=== PATIENT | male | born 1975 | race Caucasian/White ===

== ENCOUNTER 2018-05-17 08:04 | Observation (INO) ==
[2018-05-17] MEDS ORDERED: *HR* Adenosine 6 MG/2 ML VIAL IVP ONE (08:09)
[2018-05-17] MEDS ORDERED: Aspirin 81 MG TAB.CHEW PO ONE (08:10)
[2018-05-17] MEDS ORDERED: 0.9 % Sodium Chloride 1,000 ML IVC SCH ×2 (08:15→10:01)
--- NOTE | 2018-05-17 08:26 | Emergency Department Note ---
Disposition Clinical Impression: History of hyperlipidemia, Chest pain, History of hypertension, Shortness of breath, HLD (hyperlipidemia), Morbid obesity with BMI of 40.0-44.9, adult, Diabetes mellitus Disposition: Admitted As Inpatient Condition: Fair Referrals: Fco Mcconnell MD [Primary Care Provider] - Forms: ED Satisfaction Letter Time of Disposition: 09:23 (daryl solano [facility]) Chest Pain HPI - General Chief Complaint: ED Chest Pain Stated Complaint: CHEST PAIN Time Seen by Provider: 05/17/18 08:05 Source: patient Mode of arrival: ambulatory Limitations: no limitations Vital Signs Reviewed: Yes Nursing Notes Reviewed: Yes - History of Present Illness HPI Narrative: 43-year-old male depressed 7:00 this morning developed chest pressure now presents here to the emergency room patient states he was moving some boxes when it occurred he denies any blurred vision double vision loss vision and lightheadedness or any syncope patient states he feels like his heart is racing patient had a heart attack in the past states a pressure similar to that he denies fever chills cough cold of flulike symptoms numbness and weakness recent weight gain or weight loss patient states he has been taking fluids he is diabetic with a history of hypertensive heart disease Pt complaint: chest pain Onset (ago): hour(s) (1) Time: 07:00 Duration: constant Onset: during rest, during exertion Pain Location: substernal Severity: severe Severity scale (1-10): 10 Quality: tightness, similar to prior [place] Pain Radiation: none Improves with: nothing Worsens with: nothing Associated symptoms: Reports: palpitations. Denies: nausea, vomiting, diaphoresis, dyspnea, sense of impending doom, syncope, fever, cough, leg swelling Treatments prior to arrival chest pain: other (To call his normal medications which does include aspirin and metoprolol lisinopril) - Related Data Home Medications Medication Instructions Recorded Confirmed Canagliflozin [Invokana] 100 mg PO DAILY 04/14/16 05/17/18 Citalopram Hydrobromide [Celexa] 40 mg PO DAILY 04/14/16 05/17/18 Glimepiride [Amaryl] 4 mg PO DAILY 04/14/16 05/17/18 HYDROcodone/Acet 10/325 mg [[place] 1 tab PO TID PRN 04/14/16 05/17/18 10-325 mg] Lisinopril [Zestril] 40 mg PO DAILY 04/14/16 05/17/18 Pravastatin Sodium [Pravachol] 80 mg PO DAILY 04/14/16 05/17/18 Amlodipine Besylate 10 mg PO DAILY 05/12/17 05/17/18 Exenatide Microspheres [Bydureon 2 mg SQ QWEEK 05/12/17 05/17/18 Pen] Metformin HCl [Metformin HCl ER] 1,000 mg PO BID 05/12/17 05/17/18 Quetiapine Fumarate [Seroquel] 25 mg PO HS 05/12/17 05/17/18 Metoprolol Succinate [Toprol Xl] 100 mg PO BID 04/25/18 05/17/18 Triamterene/HCTZ 37.5/25mg 1 tab PO DAILY 04/25/18 05/17/18 [Dyazide] hydrALAZINE [HydrALAZINE] 25 mg PO TID 04/25/18 05/17/18 Previous Rx's Medication Instructions Recorded Aspirin 81 mg PO DAILY #30 tab.chew 05/14/17 Isosorbide MONOnitrate (24 HR) 60 mg PO DAILY #30 tab.er.24h 05/14/17 [Imdur] Albuterol Sulfate [Albuterol 2 puff IH QID #1 inhaler 10/12/17 Inhaler] Allergies Allergy/AdvReac Type Severity Reaction Status Date / Time No Known Allergies Allergy Verified 04/25/18 14:57 All systems ED: reviewed and negative except as stated. Review of Systems: As Per HPI Constitutional: Reports: weakness. Denies: fever, chills Eyes: Denies: eye pain, eye discharge ENT ED: Denies: ear pain, throat pain Cardiovascular: Reports: chest pain, palpitations. Denies: dyspnea on exertion , orthopnea, syncope, paroxysmal nocturnal dyspnea Respiratory: Denies: cough, dyspnea, wheezes Gastrointestinal: Denies: abdominal pain, nausea, vomiting Genitourinary: Denies: urgency, dysuria, frequency Musculoskeletal: Denies: back pain, neck pain Integumentary: Denies: rash, abrasion Neurological: Denies: abnormal gait Psychiatric: Denies: anxiety Endocrine: Denies: fatigue Hematological/Lymphatic: Denies: easy bleeding Allergic/Immunologic: Denies: facial swelling Chest Pain PMH - Past Medical History Medical history: Reports: asthma, diabetes, hyperlipidemia, hypertension Psychiatric history: Reports: no psych history - Social History Smoking Status: Never smoker Alcohol use: Reports: none Drug use: Reports: none Physical Exam - General Limitations: no limitations General appearance: alert, in no apparent distress, anxious, obese - Head Head exam: atraumatic, normocephalic, normal inspection - Eye Eye exam: Present: normal appearance, PERRL, EOMI - ENT ENT exam: normal exam, normal oropharynx, mucous membranes moist - Neck Neck exam: Present: normal inspection, full ROM, trachea midline - Chest Chest inspection: Present: normal inspection, symmetric chest wall rise - Respiratory Respiratory exam: Present: normal lung sounds bilaterally - Cardiovascular Cardiovascular exam: Present: tachycardia, other (But then became irregular rate and rhythm) - Abdominal Exam Abdominal exam: Present: soft, Non-Tender, normal bowel sounds, hyperactive bowel sounds. Absent: mass, pulsatile mass - Extremities Exam Extremities exam: Present: normal inspection, full ROM, normal capillary refill. Absent: tenderness, pedal edema, joint swelling, calf tenderness - Expanded Lower Extremity Exam Neurovascular/Tendon exam: Present: normal capillary refill, normal fine/light touch Gait: observed and normal - Back Exam Back exam: Present: normal inspection, full ROM. 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 Patient resting comfortably at this time - Reevaluation(s) Reevaluation #1: Patient is slight increase in his heart rate was given an additional dose of Cardizem placed on a Cardizem drip transferred to [facility] [address] Hernández except Vital Signs Temperature 97.6 F 05/17/18 08:05 Pulse Rate 138 05/17/18 08:05 Respiratory Rate 18 05/17/18 08:05 Blood Pressure 130/68 05/17/18 08:05 O2 Sat by Pulse Oximetry 96 05/17/18 08:05 Temperature 97.6 F 05/17/18 08:05 Pulse Rate 119 05/17/18 09:15 Respiratory Rate 18 05/17/18 09:15 Blood Pressure 140/78 05/17/18 09:15 O2 Sat by Pulse Oximetry 96 05/17/18 09:15 Oxygen Delivery Oxygen Delivery Room Air Chest Pain - Differential Diagnosis Likely: unstable angina pectoris, st elevation myocardial infraction, chest pain - Medical Records Medical records reviewed: Yes I reviewed the patient's medical records. - Lab Data Lab results reviewed: Yes I reviewed the patient's lab results. Result diagrams: 05/17/18 08:28 05/17/18 08:28 Lab Results 05/17/18 05/17/18 05/17/18 Range/Units 08:28 08:28 08:28 WBC 12.0 H (4.3-11.1) K/mcL RBC 5.50 (4.19-5.50) M/mcL Hgb 16.4 (12.9-16.9) g/dL Hct 47.7 (37.5-50.1) % MCV 86.7 (83.0-100.0) fL MCH 29.8 (28.0-33.3) pg MCHC 34.4 (31.6-35.5) g/dL RDW 13.2 (11.5-14.5) % Plt Count 297 (140-400) K/mcL MPV 10.7 (9.4-12.4) fL Immature Gran % 0.2 (0-4) % Seg Neutrophils % 62.9 % Lymphocytes % 25.3 % Monocytes % 8.0 % Eosinophils % 2.4 % Basophils % 1.2 % Neutrophils # 7.6 (1.6-8.9) K/mcL Lymphocytes # 3.0 (0.6-4.6) K/mcL Monocytes # 1.0 (0.0-1.3) K/mcL Eosinophils # 0.3 (0.0-0.6) K/mcL Basophils # 0.1 (0.0-0.2) K/mcL PT 11.4 (9.4-12.1) Seconds INR 1.1 APTT 32.9 (26.0-36.0) Seconds Sodium (136-145) mEq/L Potassium (3.5-5.1) mEq/L Chloride (98-107) mEq/L Carbon Dioxide (23-29) mEq/L BUN (6-20) mg/dL Creatinine (0.70-1.30) mg/dL Est GFR ( Amer) (> 60) Est GFR (Non-Af Amer) (> 60) BUN/Creatinine Ratio (6-26) Glucose (70-105) mg/dL Calculated Osmolality (280-300) Calcium (8.6-10.3) mg/dL Magnesium (1.6-2.6) mg/dL Total Bilirubin (0.3-1.0) mg/dL AST (13-39) Units/L ALT (7-52) Units/L Alkaline Phosphatase (34-104) Units/L Troponin I (< 0.04) ng/mL Serum Total Protein (6.4-8.9) g/dL Albumin (3.5-5.7) g/dL Globulin (2.4-3.5) g/dL Albumin/Globulin Ratio (1.1-2.2) TSH (0.340-5.600) mcIU/mL 05/17/18 Range/Units 08:28 WBC (4.3-11.1) K/mcL RBC (4.19-5.50) M/mcL Hgb (12.9-16.9) g/dL Hct (37.5-50.1) % MCV (83.0-100.0) fL MCH (28.0-33.3) pg MCHC (31.6-35.5) g/dL RDW (11.5-14.5) % Plt Count (140-400) K/mcL MPV (9.4-12.4) fL Immature Gran % (0-4) % Seg Neutrophils % % Lymphocytes % % Monocytes % % Eosinophils % % Basophils % % Neutrophils # (1.6-8.9) K/mcL Lymphocytes # (0.6-4.6) K/mcL Monocytes # (0.0-1.3) K/mcL Eosinophils # (0.0-0.6) K/mcL Basophils # (0.0-0.2) K/mcL PT (9.4-12.1) Seconds INR APTT (26.0-36.0) Seconds Sodium 138 (136-145) mEq/L Potassium 3.2 L (3.5-5.1) mEq/L Chloride 100 (98-107) mEq/L Carbon Dioxide 27 (23-29) mEq/L BUN 22 H (6-20) mg/dL Creatinine 0.74 (0.70-1.30) mg/dL Est GFR ( Amer) > 60 (> 60) Est GFR (Non-Af Amer) > 60 (> 60) BUN/Creatinine Ratio 30 H (6-26) Glucose 162 H (70-105) mg/dL Calculated Osmolality 293 (280-300) Calcium 9.2 (8.6-10.3) mg/dL Magnesium 1.4 L (1.6-2.6) mg/dL Total Bilirubin 0.6 (0.3-1.0) mg/dL AST 14 (13-39) Units/L ALT 20 (7-52) Units/L Alkaline Phosphatase 95 (34-104) Units/L Troponin I < 0.03 (< 0.04) ng/mL Serum Total Protein 7.0 (6.4-8.9) g/dL Albumin 4.2 (3.5-5.7) g/dL Globulin 2.8 (2.4-3.5) g/dL Albumin/Globulin Ratio 1.5 (1.1-2.2) TSH 0.810 (0.340-5.600) mcIU/mL - Radiology Data Radiology results reviewed: Yes I reviewed the patient's radiology results. - EKG Data EKG attestation: Yes I reviewed and interpreted this EKG. EKG results narrative: EKG #1 sinus tach with short WI interval left ventricular hypertrophy and some possible ST changes rate 150 when necessary 120. 98 QT 300 access -3 EKG #2 atrial fib with rapid ventricular response with occasional PVC unifocal and etiology nonspecific T-wave changes rate 120 WI and QRS 111 QT 313 axis EKG #32 with PVCs of unifocal etiology rate 99 WI 188 QRS 96 QT 332 access one Heart Score - Score History: Slightly Suspicious EKG: Non Specific repolarisation Disturbance Age: Less than 45 Risk Factors: Equal/Greater than 3 risk factor or history of atherosclerotic disease Troponin: Less than normal limit HEART Score Total: 3 Critical Care Time Critical Care Time: Yes Total Critical Care Time: 35 Attestation: Critical care performed:35 iPhones really clinically significant life- threatening deterioration is patient as result of the new onset atrial fibrillation or cardiac arrhythmia stabilized patient and arranging admission Time is exclusive of separately billable procedures. Time includes: direct patient care, patient reassessment, coordination of patient care, interpretation of data (laboratory data, radiology data, and respiratory data), review of patient's medical records, medical consultation and documentation of patient care. Procedures included in critical care time: Procedures excluded from critical care time:
[2018-05-17 08:36] LABS: Basophils # 0.1 K/mcL (0.0-0.2); Basophils % 1.2 %; Eosinophils # 0.3 K/mcL (0.0-0.6); Eosinophils % 2.4 %; Hematocrit 47.7 % (37.5-50.1); Hemoglobin 16.4 g/dL (12.9-16.9); Immature Granulocytes % 0.2 % (0-4); Lymphocytes % 25.3 %; Mean Corpuscular HGB Conc 34.4 g/dL (31.6-35.5); Mean Corpuscular Hemoglobin 29.8 pg (28.0-33.3); Mean Corpuscular Volume 86.7 fL (83.0-100.0); Mean Platelet Volume 10.7 fL (9.4-12.4); Platelet Count 297 K/mcL (140-400); Red Cell Distribution Width 13.2 % (11.5-14.5); Segmented Neutrophils % 62.9 %
[2018-05-17 08:41] LABS: Neutrophils # 7.6 K/mcL (1.6-8.9)
[2018-05-17 08:44] LABS: INR 1.1; Prothrombin Time 11.4 Seconds (9.4-12.1)
[2018-05-17 09:03] LABS: Alanine Aminotransferase 20 Units/L (7-52); Albumin 4.2 g/dL (3.5-5.7); Albumin/Globulin Ratio 1.5 (1.1-2.2); Alkaline Phosphatase 95 Units/L (34-104); Aspartate Amino Transferase 14 Units/L (13-39); BUN/Creatinine Ratio 30 (6-26); Bilirubin,Total 0.6 mg/dL (0.3-1.0); Blood Urea Nitrogen 22 mg/dL (6-20); Calcium 9.2 mg/dL (8.6-10.3); Carbon Dioxide 27 mEq/L (23-29); Chloride 100 mEq/L (98-107); Globulin 2.8 g/dL (2.4-3.5); Glucose 162 mg/dL (70-105); Magnesium 1.4 mg/dL (1.6-2.6); Osmolality,Calculated 293 (280-300); Potassium 3.2 mEq/L (3.5-5.1); Sodium 138 mEq/L (136-145); Troponin I < 0.03 ng/mL (< 0.04); eGFR For African Americans > 60 (> 60); eGFR For Non-African Americans > 60 (> 60)
[2018-05-17] MEDS ORDERED: Potassium Effervescent 25 MEQ TABLET.EFF PO ONE (09:11)
[2018-05-17] MEDS ORDERED: Naloxone 0.4 MG/ML INJ IVP PRN (10:01)
[2018-05-17] MEDS ORDERED: *HR* Dextrose 50 % in Water (Syg) 50 ML SYRINGE IVP PRN (10:01)
[2018-05-17] MEDS ORDERED: *HR* HYDROcodone/Acet 10/325 mg TABLET PO PRN (10:01)
[2018-05-17] MEDS ORDERED: D5% in Water 1,000 ML IVC PRN (10:01)
[2018-05-17] MEDS ORDERED: Dextrose Gel 15 GM/37.5 ML TUBE PO PRN ×2 (10:01)
[2018-05-17] MEDS: Insulin LISPRO 300 UNITS/3 ML VIAL SQ SCH ×2 (11:41→16:33)
--- NOTE | 2018-05-17 12:24 | Internal Med History&Physical ---
Date of Encounter: 05/17/18 Time of Encounter: 11:45 Assessment and Plan (1) Atrial fibrillation Current visit: Yes Status: Acute Duration unknown. Now converted back to normal sinus rhythm. Will discontinue Cardizem drip and place on oral verapamil. Continue maximum dose metoprolol XL. Will order echocardiogram. Qualifiers: Atrial fibrillation type: unspecified Qualified Code(s): I48.91 - Unspecified atrial fibrillation (2) Chest pain Current visit: Yes Status: Acute Will repeat cardiac enzymes. Regadenoson test during recent [facility] stay unremarkable for ischemia. Will order echocardiogram Qualifiers: Chest pain type: precordial pain Qualified Code(s): R07.2 - Precordial pain (3) Diabetes mellitus Current visit: Yes Status: Chronic Continue Invokana, Bydureon, Amaryl, and metformin. Qualifiers: Diabetes mellitus type: type 2 Diabetes mellitus ferry terminal agent insulin use: without ferry terminal agent use Diabetes mellitus complication status: without complication Qualified Code(s): E11.9 - Type 2 diabetes mellitus without complications (4) HLD (hyperlipidemia) Current visit: No Status: Acute Profile 04/25/2018 showed total cholesterol 139, triglycerides 132, LDL 80, HDL 33, and total/HDL ratio 4.2. Continue statin. Qualifiers: Hyperlipidemia type: unspecified Qualified Code(s): E78.5 - Hyperlipidemia , unspecified (5) Leukocytosis Current visit: No Status: Acute Mild leukocytosis present on most labs since January 2015. Possibly normal variant. Qualifiers: Leukocytosis type: unspecified Qualified Code(s): D72.829 - Elevated white blood cell count, unspecified (6) HTN (hypertension) Current visit: No Status: Chronic Continue Dyazide, Toprol, lisinopril, and hydralazine. Will discontinue Norvasc and use verapamil to assist in AF with RVR control. Qualifiers: Hypertension type: essential hypertension Qualified Code(s): I10 - Essential (primary) hypertension (7) Hypokalemia Current visit: Yes Status: Acute Supplemental potassium has been started. Will monitor labs. (8) Hypomagnesemia Current visit: Yes Status: Acute Supplemental magnesium has been ordered. Internal Medicine - H&P: HPI Chief complaint: Chest pain Admitted From: Emergency Dept Plans for Post Hospital Care: Home History of present illness: Mr. Hale is a 43 year old male who came to the hospital stating he had onset of discomfort in his chest approximately 0700 while doing usual activities at work. He describes a sensation as a tightness in his chest that radiated to his left arm. There was dyspnea and diaphoresis. He had a sensation of rapid heart rate. He states the discomfort was at a level of 10/10. He took an aspirin without relief so came to emergency room. He was evaluated and found to have atrial fibrillation with RVR. He was started on Cardizem drip and admitted to [facility] floor for ongoing care needs. He denies previous diagnosis of atrial fibrillation. He had an episode of similar but less severe chest tightness approximately 3 weeks ago and was hospitalized at [facility]. TX was ruled out and Regadenoson stress test showed no evidence of ischemia. He thinks he was told he might have had an TX several years ago but does not remember details. He denies past heart catheter being done however H&P at [facility] on 04/25/2018 states he reported a LHC in the past with 35% stenosis in a vessel. Echocardiogram on 05/12/2017 showed LVEF of 65%. No significant valvular dysfunction was seen. There was significant increased thickness interventricular septum and posterior wall at 1.60 and 1.40 cm respectively. He denies DVT or pulmonary embolus. He denies angina or anginal equivalents or similar chest discomfort doing usual work duties. He states he is pain-free at present time. Past Med Surg Social Fam HX - Past Medical History Medical history: asthma, diabetes, hyperlipidemia, hypertension Additional medical history: see attached records, pt also reports chronic back pain with past surgeries and injections, neuropathy Psychiatric history: no psych history - Past Surgical History Additional surgical history: BACK/WRIST - Social History Smoking Status: Never smoker Smokeless Tobacco Status: No Alcohol use: none Drug use: none - Family History Father Adopted: [place]: Vlad Nelsonmirtha Marcos. Age: 64 Family Member Ethnicity: Non- Living Status: Still Living Hx Family Cardiac Disorders: Yes (HTN HLD) Hx Family Endocrine Disorder: Yes (DM) Hx Family Neurologic Disorders: Yes (stroke) Mother Adopted: [place]: Beverly Hale Age: 62 Family Member Ethnicity: Non- Living Status: Still Living Hx Family Cardiac Disorders: Yes (HTN) Hx Family Endocrine Disorder: Yes (DM) Internal Medicine - H&P: Meds Canagliflozin [Invokana] 100 mg PO DAILY 04/14/16 [History] Citalopram Hydrobromide [Celexa] 40 mg PO DAILY 04/14/16 [History] Glimepiride [Amaryl] 4 mg PO DAILY 04/14/16 [History] HYDROcodone/Acet 10/325 mg [[place] 10-325 mg] 1 tab PO TID PRN 04/14/16 [History] Lisinopril [Zestril] 40 mg PO DAILY 04/14/16 [History] Pravastatin Sodium [Pravachol] 80 mg PO DAILY 04/14/16 [History] Amlodipine Besylate 10 mg PO DAILY 05/12/17 [History] Exenatide Microspheres [Bydureon Pen] 2 mg SQ QWEEK 05/12/17 [History] Metformin HCl [Metformin HCl ER] 1,000 mg PO BID 05/12/17 [History] Quetiapine Fumarate [Seroquel] 25 mg PO HS 05/12/17 [History] Aspirin 81 mg PO DAILY #30 tab.chew 05/14/17 [Rx] Isosorbide MONOnitrate (24 HR) [Imdur] 60 mg PO DAILY #30 tab.er.24h 05/14/17 [ Rx] Albuterol Sulfate [Albuterol Inhaler] 2 puff IH QID #1 inhaler 10/12/17 [Rx] Metoprolol Succinate [Toprol Xl] 100 mg PO BID 04/25/18 [History] Triamterene/HCTZ 37.5/25mg [Dyazide] 1 tab PO DAILY 04/25/18 [History] hydrALAZINE [HydrALAZINE] 25 mg PO TID 04/25/18 [History] 3 Allergy/AdvReac Type Severity Reaction Status Date / Time No Known Allergies Allergy Verified 04/25/18 14:57 All Systems PM: A 10-system review of systems was performed and is negative for pertinent findings except as documented above in the HPI. Review of systems: Gen.: He states his weight has been stable the past few months Cardiovascular: As per history of present illness Respiratory: He is a lifelong nonsmoker but reports a diagnosis of asthma. PFTs were done 05/23/2017 which showed FVC 63% predicted, FEV1/FVC 82%, MVV 43% predicted, and DLCO 138%. GI: He denies disorders of his liver gallbladder or exocrine pancreas : Denies hematuria dysuria or kidney stones Neurologic: He denies large distribution strokes or seizures. Endocrine: He was diagnosed with DM 2 approximately 2009. Hemoglobin A1c was 7.5% on 04/25/2018. He has hyperlipidemia. He denies thyroid disease Hematology/oncology: He denies blood disorders cancers or anemia Psychiatric: He denies anxiety depression or other mental health issues [place] skeletal: He reports 2 previous back surgeries and wrist surgery. He denies other bone joint or muscle disorders. - Constitutional Vitals: Temp Pulse Resp BP Pulse Ox 98.1 F 112 18 109/66 95 05/17/18 10:01 05/17/18 10:01 05/17/18 10:15 05/17/18 10:15 05/17/18 10:01 Exam: Gen.: He is well-developed obese male lying in bed who appears in no acute distress HEENT: Head is atraumatic and normocephalic. Eyes: EOMI. There is no scleral icterus. Mouth: Mucosa is moist. Neck: Supple and nontender. There is no thyromegaly or adenopathy noted. Heart: Regular without murmurs gallops or ectopics Lungs: No wheezes or crackles are heard. Abdomen: Soft and nontender. No masses or guarding are noted. Extremities: He has chronic venous stasis pigmentation changes of his lower legs. Dorsalis pedis and posttibial pulses are 1-2 over 2 bilaterally. There is no cyanosis edema or clubbing noted. Neurologic: Mental status: He is talkative and a good historian. Cranial nerves : Smile is symmetric. Forehead wrinkles bilaterally. Tongue protrudes midline. EOMI. Motor: There is no pronator drift. Cerebellar: Finger to nose is intact bilaterally. Skin: Warm and dry Internal Med - H&P Results - Labs CBC & Chem 7: 05/17/18 08:28 05/17/18 08:28
[2018-05-17] MEDS: Magnesium Oxide 400 MG TABLET PO SCH ×2 (14:27→20:22)
[2018-05-17] MEDS: Verapamil ER (24 HR) 120 MG TABLET.ER PO SCH (14:27)
[2018-05-17] MEDS: hydrALAZINE 25 MG TABLET PO SCH ×2 (14:28→20:22)
[2018-05-17] MEDS: *HR* Metformin 500 MG TABLET PO SCH (16:36)
[2018-05-17] MEDS: Metoprolol XL (24 HR) Succ 50 MG TAB.ER.24H PO SCH (20:21)
[2018-05-18 02:25] LABS: Basophils # 0.1 K/mcL (0.0-0.2); Basophils % 0.8 %; Eosinophils # 0.4 K/mcL (0.0-0.6); Eosinophils % 3.1 %; Hematocrit 44.9 % (37.5-50.1); Hemoglobin 15.1 g/dL (12.9-16.9); Immature Granulocytes % 0.3 % (0-4); Lymphocytes # 3.7 K/mcL (0.6-4.6); Mean Corpuscular HGB Conc 33.6 g/dL (31.6-35.5); Mean Corpuscular Hemoglobin 29.7 pg (28.0-33.3); Mean Corpuscular Volume 88.2 fL (83.0-100.0); Mean Platelet Volume 10.4 fL (9.4-12.4); Monocytes # 0.8 K/mcL (0.0-1.3); Monocytes % 6.8 %; Platelet Count 277 K/mcL (140-400); Red Blood Count 5.09 M/mcL (4.19-5.50); Red Cell Distribution Width 13.3 % (11.5-14.5)
[2018-05-18 02:32] LABS: Neutrophils # 6.8 K/mcL (1.6-8.9)
[2018-05-18 02:44] LABS: BUN/Creatinine Ratio 30 (6-26); Blood Urea Nitrogen 17 mg/dL (6-20); Carbon Dioxide 30 mEq/L (23-29); Chloride 102 mEq/L (98-107); Glucose 103 mg/dL (70-105); Osmolality,Calculated 292 (280-300); Potassium 3.5 mEq/L (3.5-5.1); Sodium 140 mEq/L (136-145); eGFR For African Americans > 60 (> 60); eGFR For Non-African Americans > 60 (> 60)
[2018-05-18 06:58] VITALS: BP 157/88
[2018-05-18] MEDS: Metoprolol XL (24 HR) Succ 50 MG TAB.ER.24H PO SCH (07:54)
[2018-05-18] MEDS: Verapamil ER (24 HR) 120 MG TABLET.ER PO SCH (07:54)
[2018-05-18] MEDS: Magnesium Oxide 400 MG TABLET PO SCH (07:54)
[2018-05-18] MEDS: hydrALAZINE 25 MG TABLET PO SCH ×2 (07:55→14:24)
[2018-05-18] MEDS: *HR* Metformin 500 MG TABLET PO SCH ×2 (07:55→16:28)
[2018-05-18] MEDS ORDERED: *HR* Glimepiride 2 MG TABLET PO SCH (08:00)
[2018-05-18] MEDS: Insulin LISPRO 300 UNITS/3 ML VIAL SQ SCH ×2 (08:01→14:27)
[2018-05-18] MEDS ORDERED: INVOKANA 100MG PO SCH (09:00)
[2018-05-18] MEDS ORDERED: Aspirin 81 MG TAB.CHEW PO SCH (09:00)
[2018-05-18] MEDS ORDERED: Lisinopril 20 MG TABLET PO SCH (09:00)
[2018-05-18] MEDS ORDERED: Isosorbide MONOnitrate (24 HR) 60 MG TAB.ER.24H PO SCH (09:00)
[2018-05-18] MEDS ORDERED: amLODIPine 5 MG TABLET PO SCH (09:00)
[2018-05-18 09:22] LABS: Estimated Average Glucose 160 mg/dl; Hemoglobin A1C 7.2 %
--- NOTE | 2018-05-18 10:11 | Electrocardiograph Report ---
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
--- NOTE | 2018-05-18 10:11 | Electrocardiograph Report ---
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
--- NOTE | 2018-05-18 10:12 | Electrocardiograph Report ---
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
--- NOTE | 2018-05-18 10:30 | Discharge Summary ---
Orders not resulted at time of discharge: Pending orders 05/17/18 12:16 EV echocardiogram Routine Date of Encounter: 05/18/18 Time of Encounter: 10:20 - Discharge Diagnosis (1) Atrial fibrillation Priority: Primary Status: Resolved Qualifiers: Atrial fibrillation type: unspecified Qualified Code(s): I48.91 - Unspecified atrial fibrillation (2) Chest pain Priority: Secondary Status: Acute Qualifiers: Chest pain type: precordial pain Qualified Code(s): R07.2 - Precordial pain (3) Diabetes mellitus Priority: Secondary Status: Chronic Qualifiers: Diabetes mellitus type: type 2 Diabetes mellitus tank terminal gauger insulin use: without tank terminal gauger use Diabetes mellitus complication status: without complication Qualified Code(s): E11.9 - Type 2 diabetes mellitus without complications (4) HLD (hyperlipidemia) Priority: Secondary Status: Chronic Qualifiers: Hyperlipidemia type: unspecified Qualified Code(s): E78.5 - Hyperlipidemia , unspecified (5) Leukocytosis Priority: Secondary Status: Acute Qualifiers: Leukocytosis type: unspecified Qualified Code(s): D72.829 - Elevated white blood cell count, unspecified (6) HTN (hypertension) Priority: Secondary Status: Chronic Qualifiers: Hypertension type: essential hypertension Qualified Code(s): I10 - Essential (primary) hypertension (7) Hypokalemia Priority: Secondary Status: Resolved (8) Hypomagnesemia Priority: Secondary Status: Acute Hospital course: Mr. Hale is a 43 year old male who came to the hospital stating he had onset of discomfort in his chest approximately 0700 while doing usual activities at work. He describes a sensation as a tightness in his chest that radiated to his left arm. There was dyspnea and diaphoresis. He had a sensation of rapid heart rate. He states the discomfort was at a level of 10/10. He took an aspirin without relief so came to emergency room. He was evaluated and found to have atrial fibrillation with RVR. He was started on Cardizem drip and admitted to [facility] for ongoing care needs. Initial orders were written by the emergency room physician. I saw him on May 17 and performed the history and physical. He was given Cardizem bolus and started on a drip in emergency room. By the time I saw him he had converted to normal sinus rhythm. I discontinued the Cardizem drip and placed him on oral verapamil. He remained in normal sinus rhythm. Repeat cardiac enzymes showed no evidence of myocardial damage. I ordered an echocardiogram which will be done later today. When I saw him on May 18 his chest pain has significantly improved. I felt he was stable for discharge home. He will follow with his PCP within 1 week. His PCP can review the echocardiogram and decide if referral to cardiology is necessary. He was given supplemental potassium and magnesium for hypokalemia and hypomagnesemia. These will be continued at discharge. His PCP can monitor labs. He will follow with his PCP Dr. Fco Mcconnell within 1 week. - Time Spent with Patient Total time spent providing and/or coordinating discharge services: - Discharge Medications Prescriptions: Magnesium Oxide [Magnesium] 400 mg PO DAILY #30 tablet Potassium Chloride 10 meq PO BIDWM #60 tab.er.prt Verapamil ER (24 HR) [Calan SR] 240 mg PO DAILY #30 tablet.er Home Medications: Canagliflozin [Invokana] 100 mg PO DAILY 04/14/16 [History] Citalopram Hydrobromide [Celexa] 40 mg PO DAILY 04/14/16 [History] Glimepiride [Amaryl] 4 mg PO DAILY 04/14/16 [History] HYDROcodone/Acet 10/325 mg [[place] 10-325 mg] 1 tab PO TID PRN 04/14/16 [History] Lisinopril [Zestril] 40 mg PO DAILY 04/14/16 [History] Pravastatin Sodium [Pravachol] 80 mg PO DAILY 04/14/16 [History] Exenatide Microspheres [Bydureon Pen] 2 mg SQ QWEEK 05/12/17 [History] Metformin HCl [Metformin HCl ER] 1,000 mg PO BID 05/12/17 [History] Quetiapine Fumarate [Seroquel] 25 mg PO HS 05/12/17 [History] Aspirin 81 mg PO DAILY #30 tab.chew 05/14/17 [Rx] Isosorbide MONOnitrate (24 HR) [Imdur] 60 mg PO DAILY #30 tab.er.24h 05/14/17 [ Rx] Albuterol Sulfate [Albuterol Inhaler] 2 puff IH QID #1 inhaler 10/12/17 [Rx] Metoprolol Succinate [Toprol Xl] 100 mg PO BID 04/25/18 [History] Triamterene/HCTZ 37.5/25mg [Dyazide] 1 tab PO DAILY 04/25/18 [History] hydrALAZINE [HydrALAZINE] 25 mg PO TID 04/25/18 [History] Magnesium Oxide [Magnesium] 400 mg PO DAILY #30 tablet 05/18/18 [Rx] Potassium Chloride 10 meq PO BIDWM #60 tab.er.prt 05/18/18 [Rx] Verapamil ER (24 HR) [Calan SR] 240 mg PO DAILY #30 tablet.er 05/18/18 [Rx] Allergies/Adverse Reactions: 3 Allergy/AdvReac Type Severity Reaction Status Date / Time No Known Allergies Allergy Verified 04/25/18 14:57 Date of admission: 05/17/18 09:37 Primary care physician: Fco Mcconnell MD - Constitutional Vitals: Temp Pulse Resp BP Pulse Ox 97.8 F 73 16 157/88 96 05/18/18 06:53 05/18/18 06:53 05/18/18 06:53 05/18/18 06:53 05/18/18 06:53 - Patient Status Disposition: Home, Self-Care Condition: Fair Overall status at discharge: patient is progressing back to baseline - Discharge Instructions Follow Up With: Fco Mcconnell MD [Primary Care Provider] - 1 week - Diet and Activity Activity: resume usual activities as tolerated Diet: diabetic diet
[2018-05-20] MEDS ORDERED: EXENATIDE 2 MG SQ SCH (09:00)
== END 2018-05-18 17:05 | disposition home or self-care (01) ==
LOC: INPPIK 08:04 → EMEROOPIK 08:04 → INPPIK 10:15
PROVIDERS: ADMIT Internal Medicine; ATTEND Internal Medicine